=== PATIENT | male | born 1930 | race Caucasian/White ===

== ENCOUNTER 2017-04-14 08:14 | Inpatient (IN) | payer OTHER ==
--- NOTE | ~2017-04-14 | CR72 ---
[facility]. [facility] A Service of [facility] RADIOLOGY TEXT RESULTS PATIENT: DAYTON ORTEZ LOCATION: A : [birth year] UNIT #: [id number] AGE: [address]: Chandan Bishop MD SEX: M ORDER DR: [id number] [facility] [address]. [place], [place] [address] [id number] I MR#: [id number] Acc #: [id number] NAME: DAYTON ORTEZ : 1930 SEX: M STUDY DATE/TIME: 04/14/2017 10:36 UNIT: [facility] ROOM: 216 STUDY DESCRIPTION: CR Chest Single View Portable Attending Physician: Chas Leo M.D. Ordering Physician: Stefan Mendoza M.D. Primary Care Physician: Eric Stallings M.D. MEDICAL IMAGING REPORT This report is preliminary unless electronic signature is present EXAM AP chest radiograph. HISTORY Pneumothorax. Followup. FINDINGS An AP view is obtained, re-demonstrating an approximate 67% right-sided pneumothorax. There are postop changes of prior bypass. The patient has atelectasis and pleural fluid at the left base. CONCLUSION Right-sided pneumothorax. Overall, not changed significantly from the earlier film. Dictated by... Stefan Mendoza M.D. THIS IS AN ELECTRONICALLY VERIFIED REPORT Stefan Mendoza M.D. at 04/16/2017 9:17 AM Shaw TD: 04/14/2017 13:55 JOB #: [id number] MEDICAL IMAGING REPORT Page 1 of 1 COPY
--- NOTE | ~2017-04-14 | CR72 ---
[facility] A Service of [facility] & [facility] RADIOLOGY TEXT RESULTS PATIENT: DAYTON ORTEZ LOCATION: A : [birth year] UNIT #: [id number] AGE: [address]: Chandan Bishop MD SEX: M ORDER DR: [id number] [facility] [address] [place], [place] [address] [id number] I MR#: [id number] Acc #: [id number] NAME: DAYTON ORTEZ : 1930 SEX: M STUDY DATE/TIME: 04/15/2017 9:56 UNIT: [facility] ROOM: 216 STUDY DESCRIPTION: CR Chest Single View Portable Attending Physician: Chas Leo M.D. Ordering Physician: Lupe Bassett M.D. Primary Care Physician: Eric Stallings M.D. MEDICAL IMAGING REPORT This report is preliminary unless electronic signature is present EXAM AP chest radiograph HISTORY Follow up chest tube to water seal. FINDINGS An AP view is obtained. Continues to be mild edema. There are postop changes of bypass. Small bore drain remains in place in the right pleural space. Small right-sided pneumothorax persists and has not changed significantly. CONCLUSION No significant interim change. Tiny persistent right-sided pneumothorax. Continued evidence of bilateral pleural fluid and pulmonary edema. Dictated by... Stefan Mendoza M.D. THIS IS AN ELECTRONICALLY VERIFIED REPORT Stefan Mendoza M.D. at 04/16/2017 9:17 AM RAMONA/lashawn TD: 04/15/2017 15:14 JOB #: [id number] MEDICAL IMAGING REPORT Page 1 of 1 COPY
--- NOTE | ~2017-04-14 | CR72 ---
[facility] A Service of [facility] & [facility] RADIOLOGY TEXT RESULTS PATIENT: DAYTON ORTEZ LOCATION: A : [birth year] UNIT #: [id number] AGE: [address]: Chas Leo MD SEX: M ORDER DR: [id number] [facility] [address] [place], [place] [address] [id number] I MR#: [id number] Acc #: [id number] NAME: DAYTON ORTEZ : 1930 SEX: M STUDY DATE/TIME: 04/15/2017 5:15 UNIT: [facility] ROOM: [facility] STUDY DESCRIPTION: CR Chest Single View Portable Attending Physician: Chas Leo M.D. Ordering Physician: Chas Leo M.D. Primary Care Physician: Eric Stallings M.D. MEDICAL IMAGING REPORT This report is preliminary unless electronic signature is present EXAM Portable chest INDICATION Follow up right chest tube. FINDINGS This portable view of the chest shows a small caliber right chest tube present. I believe there is still a hydropneumothorax in the right base which is stable. The left lung does not have a pneumothorax. There are faint left perihilar infiltrates and there is left lower lobe atelectasis. There has been no change. Dictated by... Andre Baltazar M.D. THIS IS AN ELECTRONICALLY VERIFIED REPORT Andre Baltazar M.D. at 04/15/2017 1:31 PM SHAQUILLE/lashawn TD: 04/15/2017 11:28 JOB #: [id number] MEDICAL IMAGING REPORT Page 1 of 1 COPY
--- NOTE | ~2017-04-14 | DS ---
Unit #: [id number] #: [id number] Patient: DAYTON ORTEZ [id number] [address] [address] [id number] I MR#: [id number] NAME: DAYTON ORTEZ ROOM: 216 Age: 87 Sex: M Admission Date: 04/14/2017 : 1930 Discharge Date: 04/16/2017 Attending Physician: Chandan Bishpo M.D. Primary Care Physician: Eric Stallings M.D. DISCHARGE SUMMARY DIAGNOSES ON ADMISSION 1. Shortness of air. 2. Right pleural effusion. 3. Right pneumothorax. DIAGNOSES ON DISCHARGE 1. Right pneumothorax. 2. Right pleural effusion, status post thoracentesis. 3. Coronary artery disease, status post coronary artery bypass graft. 4. Congestive heart failure. 5. Hyperlipidemia. 6. Vitamin D deficiency. CONSULTATION Dr. Finney and group - CV Surgery. LABS AND PROCEDURES DONE The patient's creatinine is 0.9, sodium 134, potassium is 4.1. WBC was 8.5, hemoglobin 12.4, platelet count was 156. The patient had an outpatient thoracentesis done with removal of 1.5 liters of fluid. Chest x-ray revealed right sided pneumothorax. ASSESSMENT AND PLAN 87-year-old male who had outpatient thoracentesis done and had hemothorax, was admitted in the hospital. Interventional radiology has replaced her chest tube. Yesterday, they advised to remove the chest tube and repeat chest x-ray was done. I do not have the results but patient is feeling much better and wants to go home. He is accompanied by two daughters who stated that they will follow up on Monday with [facility] as scheduled. Therefore, I will discharge patient home at the family's request. RECOMMENDATIONS ON DISCHARGE 1. Condition is stable. 2. Activity is as tolerated. MEDICATIONS 1. Lopressor 25 mg p.o. b.i.d. 2. Lipitor 40 mg p.o. q. h.s. 3. Enteric coated aspirin 81 mg p.o. daily. Unit #: [id number] #: [id number] Patient: DAYTON ORTEZ 4. Protonix 40 mg p.o. daily. 5. Nitroglycerin 0.4 mg p.o. sublingual p.r.n. FAMILY HISTORY The patient is advised to follow up with primary care physician as scheduled on Monday. The plan was discussed in detail with the patient and daughters and they showed complete understanding. They will call family care physician or go to ER if patient's condition changes. Dictated by... Satya Galindo TD: 04/16/2017 12:24 JOB #: [id number] DISCHARGE SUMMARY Page 1 of 1 X Chandan Bishop MD X DISCHARGE SUMMARY
--- NOTE | ~2017-04-14 | CR72 ---
[facility] A Service of [facility] & [facility] RADIOLOGY TEXT RESULTS PATIENT: DAYTON ORTEZ LOCATION: A : [birth year] UNIT #: [id number] AGE: [address]: Chandan Bishop MD SEX: M ORDER DR: [id number] [facility] [address]. [place], [place] [address] [id number] I MR#: [id number] Acc #: [id number] NAME: DAYTON ORTEZ : 1930 SEX: M STUDY DATE/TIME: 04/15/2017 15:47 UNIT: [facility] ROOM: 216 STUDY DESCRIPTION: CR Chest Single View Portable Attending Physician: Chandan Bishop M.D. Ordering Physician: Stefan Mendoza M.D. Primary Care Physician: Eric Stallings M.D. MEDICAL IMAGING REPORT This report is preliminary unless electronic signature is present EXAM AP chest radiograph HISTORY Chest tube removal. FINDINGS An AP view of the chest is obtained. Right-sided pleural drain has been removed. Pneumothorax on the right is small and stable. Continues to be bilateral pleural effusions and there continues to be evidence of pulmonary edema. CONCLUSION 1. Interim right pleural drain removal, no change in the pneumothorax. 2. Findings consistent with congestive heart failure. Dictated by... Stefan Mendoza M.D. THIS IS AN ELECTRONICALLY VERIFIED REPORT Stefan Mendoza M.D. at 04/20/2017 7:15 AM RAMONA/mariano TD: 04/16/2017 16:21 JOB #: [id number] MEDICAL IMAGING REPORT Page 1 of 1 COPY
--- NOTE | ~2017-04-14 | CR71 ---
[facility] A Service of [facility] RADIOLOGY TEXT RESULTS PATIENT: DAYTON ORTEZ LOCATION: [facility] : [birth year] UNIT #: [id number] AGE: [address]: Chandan Bishop MD SEX: M ORDER DR: [id number] [facility] [address] [facility]. [place], [place] [address] [id number] I MR#: [id number] Acc #: [id number] NAME: DAYTON ORTEZ : 1930 SEX: M STUDY DATE/TIME: 04/14/2017 9:45 UNIT: [facility] ROOM: [facility] STUDY DESCRIPTION: CR Chest Single View Attending Physician: Chas Leo M.D. Ordering Physician: Stefan Mendoza M.D. Primary Care Physician: Eric Stallings M.D. MEDICAL IMAGING REPORT This report is preliminary unless electronic signature is present EXAM AP chest radiograph. HISTORY Status post right thoracentesis. TECHNIQUE An AP view was obtained. FINDINGS The patient has had a right thoracentesis. There is about 60% to 70% right-sided pneumothorax with atelectasis of the right lung. The patient does have atelectasis at the left base and left-sided pleural fluid and interim postop changes of bypass surgery. CONCLUSION 1. Interim right thoracentesis with a right-sided pneumothorax ex vacuo with about 60% to 70%. Followup chest radiograph will be obtained in 1 hour. 2. Interim bypass surgery. Dictated by... Stefan Mendoza M.D. THIS IS AN ELECTRONICALLY VERIFIED REPORT Stefan Mendoza M.D. at 04/16/2017 9:17 AM RAMONA/lydia TD: 04/14/2017 13:44 JOB #: [id number] [facility] A Service of [facility] & [facility] RADIOLOGY TEXT RESULTS PATIENT: DAYTON ORTEZ LOCATION: [facility] : [birth year] UNIT #: [id number] AGE: [address]: Chandan Bishop MD SEX: M ORDER DR: MEDICAL IMAGING REPORT Page 1 of 1 COPY
--- NOTE | ~2017-04-14 | XA203 ---
[facility] A Service of [facility] RADIOLOGY TEXT RESULTS PATIENT: DAYTON ORTEZ LOCATION: A : [birth year] UNIT #: [id number] AGE: [address]: Chandan Bishop MD SEX: M ORDER DR: [id number] [place] [id number] [facility]. [place], [place] [address] [id number] I MR#: [id number] Acc #: [id number] NAME: DAYTON ORTEZ : 1930 SEX: M STUDY DATE/TIME: 04/14/2017 9:16 UNIT: C2 ROOM: 216 STUDY DESCRIPTION: XA Thoracentesis Attending Physician: Chas Leo M.D. Primary Care Physician: Eric Stallings M.D. MEDICAL IMAGING REPORT This report is preliminary unless electronic signature is present EXAM Right thoracentesis HISTORY Shortness of breath since bypass surgery in September 2016. FINDINGS Ultrasound examination was performed of the right and left chest showing large pleural effusions bilaterally, greater on the right. An appropriate site was chosen. Skin was prepped posteriorly with Chlorhexidine solution and sterilely draped. Gloves were utilized during the procedure. Under local anesthesia, a 5-Thai catheter was inserted. A total of 1.95 L of fluid was removed. This appeared to be serous and non turbid. It was sent for appropriate laboratory analysis. Postprocedure, the patient has air return through the tube suggesting a pneumothorax. Postprocedure chest radiograph shows an approximately 60% to 70% pneumothorax ex vacuo. The patient is asymptomatic. Patient was monitored in the department for 2 hours. A small-bore chest tube was subsequently inserted and the patient will be monitored for overnight observation. CONCLUSION 1. Technically successful right-sided thoracentesis with removal of 1.95 L of serous fluid. This was sent for appropriate analysis. 2. Pneumothorax ex vacuo. Given the size of the pneumothorax, chest tube placement was performed and the patient admitted overnight for observation. Dictated by... Stefan Mendoza M.D. [facility] A Service of [facility] & [facility] RADIOLOGY TEXT RESULTS PATIENT: DAYTON ORTEZ LOCATION: [facility] 216-01 : [birth year] UNIT #: [id number] AGE: [address]: Chandan Bishop MD SEX: M ORDER DR: THIS IS AN ELECTRONICALLY VERIFIED REPORT Stefan Mendoza M.D. at 04/16/2017 9:17 AM RAMONA/lashawn TD: 04/14/2017 13:55 JOB #: [id number] MEDICAL IMAGING REPORT Page 1 of 1 COPY
--- NOTE | ~2017-04-14 | XA96 ---
[facility] A Service of [facility] & [facility] RADIOLOGY TEXT RESULTS PATIENT: DAYTON ORTEZ LOCATION: A : [birth year] UNIT #: [id number] AGE: [address]: Chandan Bishop MD SEX: M ORDER DR: [id number] [facility] [address]. [place], [place] [address] [id number] I MR#: [id number] Acc #: [id number] NAME: DAYTON ORTEZ : 1930 SEX: M STUDY DATE/TIME: 04/14/2017 11:22 UNIT: [facility] ROOM: 216 STUDY DESCRIPTION: XA Chest Tube for Pneumo or pl Attending Physician: Chas Leo M.D. Ordering Physician: Stefan Mendoza M.D. Primary Care Physician: Eric Stallings M.D. MEDICAL IMAGING REPORT This report is preliminary unless electronic signature is present EXAM Chest tube placement under fluoroscopy. HISTORY Right pneumothorax. CLINICAL SUMMARY Mr. Ortez is an 87-year-old male who underwent a bypass procedure at [facility] in the fall of 2015. He has had intermittent shortness of breath since and was referred for a right-sided thoracentesis. This was performed and the patient has a approximately 60% to 70% pneumothorax on the right. The patient is asymptomatic. Given the size of the pneumothorax and his advanced age, it was selective to place is small-bore chest tube and admit patient overnight for observation. PROCEDURE Skin was prepped and draped over the right anterior chest wall and anesthetized with 1% Xylocaine. Sterile drapes were utilized as well as a sterile gown, masks, hats, and gloves and shoe covers. Utilizing maximal sterile barrier technique, a Yueh needle was inserted under local anesthesia through the anterior chest wall over top of the right fourth rib anteriorly. An 0.035 wire was inserted and a 8-Citizen Of [place] pigtail drain placed. This was placed to low continuous suction through Pleur-evac. The procedure was very well tolerated. A single spot radiograph was obtained. Total exposure is estimated 2 mGy air kerma standard. Fluoroscopy time 1.9 minutes. CONCLUSION Successful placement of a small-bore right pleural drain to Pleur-evac drainage for a right-sided pneumothorax. [facility]. [facility] A Service of [facility] RADIOLOGY TEXT RESULTS PATIENT: DAYTON ORTEZ LOCATION: A 216-01 : [birth year] UNIT #: [id number] AGE: [address]: Chandan Bishop MD SEX: M ORDER DR: Dictated by... Stefan Mendoza M.D. THIS IS AN ELECTRONICALLY VERIFIED REPORT Stefan Mendoza M.D. at 04/16/2017 9:17 AM RAMONA/lydia TD: 04/14/2017 13:47 JOB #: [id number] MEDICAL IMAGING REPORT Page 1 of 1 COPY
--- NOTE | ~2017-04-14 | CR71 ---
[facility] A Service of [facility] RADIOLOGY TEXT RESULTS PATIENT: DAYTON ORTEZ LOCATION: A 216- : [birth year] UNIT #: [id number] AGE: [address]: Chandan Bishop MD SEX: M ORDER DR: [id number] [facility] [address] [facility]. [place], [place] [address] [id number] I MR#: [id number] Acc #: [id number] NAME: DAYTON ORTEZ : 1930 SEX: M STUDY DATE/TIME: 04/14/2017 12:01 UNIT: [facility] ROOM: 216 STUDY DESCRIPTION: CR Chest Single View Attending Physician: Chas Leo M.D. Ordering Physician: Stefan Mendoza M.D. Primary Care Physician: Eric Stallings M.D. MEDICAL IMAGING REPORT This report is preliminary unless electronic signature is present EXAM AP chest radiograph HISTORY Status post left chest tube placement. FINDINGS AP view is obtained. There has been interim insertion of a right-sided pleural drain with marked decrease in the right-sided pneumothorax with incomplete reexpansion of the right lung. There is a small basilar component remaining. CONCLUSION Decrease in the right pneumothorax. Interim insertion of a small bore right pleural drain. Dictated by... Stefan Mendoza M.D. THIS IS AN ELECTRONICALLY VERIFIED REPORT Stefan Mendoza M.D. at 04/16/2017 9:17 AM RAMONA/lashawn TD: 04/14/2017 13:49 JOB #: [id number] MEDICAL IMAGING REPORT Page 1 of 1 COPY
--- NOTE | ~2017-04-14 | HP ---
Unit #: [id number] #: [id number] Patient: DAYTON ORTEZ [id number] [address] [address] [id number] I MR#: [id number] NAME: DAYTON ORTEZ ROOM: 216 Age: 87 Sex: M Admission Date: 04/14/2017 : 1930 Attending Physician: Chas Leo M.D. Primary Care Physician: Eric Stallings M.D. HISTORY AND PHYSICAL CHIEF COMPLAINT Dyspnea. HISTORY OF PRESENT ILLNESS The patient is an 87-year-old male with past medical history of coronary artery disease, CHF, hyperlipidemia and vitamin D deficiency who presented to interventional radiology for evaluation of the above. The patient states that he has about a 1-month history of increasing shortness of breath and nonproductive cough. He denies any chest pain. No fever. Chest x-ray was done on April 10, 2017 and showed a large right pleural effusion. He presented to interventional radiology today for thoracentesis. He subsequently was noted to have a pneumothorax. A chest tube was placed. He is being admitted for observation. Of note, 1.8 liters of fluid was removed from the right chest cavity. PAST MEDICAL HISTORY 1. Admission to [facility] in September of 2016 for coronary artery bypass grafting (no records). 2. Congestive heart failure with unknown ejection fraction. 3. Coronary artery disease status post coronary artery bypass grafting. 4. Hyperlipidemia. 5. Vitamin D deficiency. PAST SURGICAL HISTORY 1. Coronary artery bypass grafting. 2. Tonsillectomy. SOCIAL HISTORY The patient lives with his . There is no tobacco or alcohol use. He walks with a cane. His code status is a [id number]. FAMILY HISTORY Noncontributory secondary to age. PHYSICAL EXAMINATION VITAL SIGNS: Currently pending. GENERAL: The patient is a very pleasant male who is awake and alert in no acute distress. HEENT: The head is atraumatic. Mucous membranes are moist. NECK: Supple. Trachea is midline. CARDIOVASCULAR: Regular rate and rhythm. He does have a 2 to 3/6 systolic ejection murmur. RESPIRATORY: Lungs are clear to auscultation bilaterally with no Unit #: [id number] #: [id number] Patient: DAYTON ORTEZ increased work of breathing. He does have a chest tube in the right chest. ABDOMEN: Soft, nontender with bowel sounds present in all 4 quadrants. EXTREMITIES: Extremities are nontender with no pedal edema. NEUROLOGIC: The patient is awake and alert. He follows commands. PSYCHIATRIC: Mood and affect are normal. The patient is cooperative. SKIN: Skin of examined areas is warm and dry. DIAGNOSTIC TESTS IMAGING: Chest x-ray shows right-sided pneumothorax. A repeat chest x-ray following chest tube placement is currently pending. LABORATORY: INR is 1.1. ASSESSMENT 1. The patient is an 87-year-old male with dyspnea secondary to number 2. 2. Right pleural effusion status post thoracentesis complicated by number 3. 3. Pneumothorax, right, status post chest tube placement. 4. History of coronary artery disease status post coronary artery bypass grafting. 5. Congestive heart failure with unknown ejection fraction. 6. Hyperlipidemia. 7. Vitamin D deficiency. PLAN 1. Admit for observation to med/surg. 2. Two-gram sodium, 1,800 mL fluid restricted, heart healthy diet. 3. Strict I's and O's. 4. Daily weights. 5. Consult interventional radiology for chest tube management. 6. Follow up repeat chest x-ray and will repeat chest x-ray in the morning. 7. Check labs. 8. Get records from [facility]. 9. Tylenol p.r.n. 10. SCDs for DVT prophylaxis. 11. Regarding codes status, the patient is a [id number]. Dictated by Satya Jimenez/korin TD: 04/14/2017 13:21 JOB #: [id number] Unit #: [id number] #: [id number] Patient: DAYTON ORTEZ HISTORY AND PHYSICAL Page 1 of 1 X Fabiana Osborne MD HISTORY AND PHYSICAL
--- NOTE | ~2017-04-14 | CR72 ---
[facility] A Service of [facility] & [facility] RADIOLOGY TEXT RESULTS PATIENT: DAYTON ORTEZ LOCATION: C2A : [birth year] UNIT #: [id number] AGE: [address]: Chandan Bishop MD SEX: M ORDER DR: [id number] [facility] [address] [place], [place] [address] [id number] I MR#: [id number] Acc #: [id number] NAME: DAYTON ORTEZ : 1930 SEX: M STUDY DATE/TIME: 04/15/2017 11:11 UNIT: [facility] ROOM: 216 STUDY DESCRIPTION: CR Chest Single View Portable Attending Physician: Chandan Bishop M.D. Ordering Physician: Lupe Bassett M.D. Primary Care Physician: Eric Stallings M.D. MEDICAL IMAGING REPORT This report is preliminary unless electronic signature is present EXAM AP portable chest 04/15/2017 at 11:11 HISTORY Pleural effusion today with chest tube placement. Shortness of breath. Cough. Pneumonia. COMPARISON AP portable chest 04/15/2017 at 09:56. NOTE The study is from 04/15/2017 11:11. For reasons unknown to myself, was placed online for interpretation by the technologist today, 04/27/2017 at 10:02. Of note, an additional chest radiograph was performed after the currently interpreted study, and that follow-up chest radiograph was timed and dated 04/15/2017 at 15:47. FINDINGS Right chest wall pigtail pleural drain appears stable in position. Small right apical pneumothorax is seen with the pleural line projecting 1.4 cm below the right posterior second rib shadow. Small lateral and basilar components of the pneumothorax persists, and likewise appear unchanged. Emphysematous changes are present. Stable small bilateral pleural effusions and bibasilar atelectasis or infiltrates. Interstitial thickening is present within the lungs, greatest in the right suprahilar region left mid-lung, unchanged from prior, thought to most likely to represent chronic scarring. Stable mild cardiac enlargement with signs of median sternotomy and CABG. IMPRESSION 1. The right side pneumothorax appears stable in comparison to the [facility] A Service of [facility] & [facility] RADIOLOGY TEXT RESULTS PATIENT: DAYTON ORTEZ LOCATION: [facility] 216-01 : [birth year] UNIT #: [id number] AGE: [address]: Chandan Bishop MD SEX: M ORDER DR: 04/15/2017 study at 05:15. The right pigtail pleural drain is also unchanged. 2. Bibasilar infiltrates with small layering bilateral pleural effusions, chronic bilateral lung scarring and emphysematous change, unchanged. 3. Stable cardiomegaly with CABG. Dictated by... Lupe Velez M.D. THIS IS AN ELECTRONICALLY VERIFIED REPORT Lupe Velez M.D. at 04/28/2017 8:32 AM ALANNA/duy TD: 04/27/2017 15:31 JOB #: [id number] MEDICAL IMAGING REPORT Page 1 of 1 COPY
[~2017-04-14 08:14] MED LIST: ASPIRIN PO
[2017-04-14 08:52] LABS: HEMATOCRIT 43.7 % (38.0-50.0); HEMOGLOBIN 14.2 gm/dL (13.0-16.0); MEAN CELL VOLUME 87.7 FL (83-96); MEAN CORPUSCULAR HEMOGLOBIN 28.5 PG (28-34); MEAN CORPUSCULAR HGB CONC 32.5 g/dL (30-36); MEAN PLATELET VOLUME 9.4 FL (6.5-11.5); RED BLOOD COUNT 4.98 X10e (3.90-5.60); RED CELL DISTRIBUTION WIDTH 15.7 % (11.0-15.5); WHITE BLOOD COUNT 11.1 X10e3 (4.0-10.5)
[2017-04-14 09:12] LABS: INR 1.1; PARTIAL THROMBOPLASTIN TIME 31.6 SECONDS (23.5-31.3); PROTHROMBIN TIME (PATIENT) 11.3 SECONDS (9.6-11.5)
[2017-04-14 11:42] LABS: BODY FLUID APPEARANCE HAZY; BODY FLUID SOURCE THORACENTESIS
[2017-04-14 11:43] LABS: BODY FLUID SPECIFIC GRAVITY 1.025
[2017-04-14 11:47] LABS: BF TOTAL NUCLEATED CELL COUNT 460 CMM (0-100); BODY FLUID RBC <10000 CMM
[2017-04-14 12:29] LABS: PROTEIN, BODY FLUID 3.9 gm/dL
[2017-04-14] MEDS ORDERED: METOPROLOL TAR25 MG PO (13:09)
[2017-04-14] MEDS ORDERED: LIPITOR40 MG PO (13:09)
[2017-04-14] MEDS ORDERED: PROTONIX PO (13:09)
[2017-04-14] MEDS ORDERED: NITROGLYGERIN0.4 MG SL (13:10)
[2017-04-14 14:13] LABS: HEMATOCRIT 40.5 % (38.0-50.0); HEMOGLOBIN 13.1 gm/dL (13.0-16.0); MEAN CELL VOLUME 87.8 FL (83-96); MEAN CORPUSCULAR HEMOGLOBIN 28.5 PG (28-34); MEAN CORPUSCULAR HGB CONC 32.5 g/dL (30-36); MEAN PLATELET VOLUME 9.6 FL (6.5-11.5); RED BLOOD COUNT 4.61 X10e (3.90-5.60); RED CELL DISTRIBUTION WIDTH 15.5 % (11.0-15.5)
[2017-04-14 14:18] LABS: BUN/CREATININE RATIO 11.11; CALCIUM SERUM 8.2 mg/dL (8.4-10.2); CREATININE SERUM 0.9 mg/dL (0.6-1.4); GLOM FILT RATE Estimated 75.5 mL/min (>60); POTASSIUM 3.9 mmol/L (3.5-5.1)
[2017-04-15 06:12] LABS: HEMATOCRIT 38.2 % (38.0-50.0); HEMOGLOBIN 12.4 gm/dL (13.0-16.0); MEAN CELL VOLUME 87.4 FL (83-96); MEAN CORPUSCULAR HEMOGLOBIN 28.4 PG (28-34); MEAN CORPUSCULAR HGB CONC 32.5 g/dL (30-36); MEAN PLATELET VOLUME 9.6 FL (6.5-11.5); RED BLOOD COUNT 4.37 X10e (3.90-5.60); RED CELL DISTRIBUTION WIDTH 15.2 % (11.0-15.5); WHITE BLOOD COUNT 8.5 X10e3 (4.0-10.5)
[2017-04-15 07:03] LABS: BUN/CREATININE RATIO 12.22; CALCIUM SERUM 8.3 mg/dL (8.4-10.2); CREATININE SERUM 0.9 mg/dL (0.6-1.4); GLOM FILT RATE Estimated 75.5 mL/min (>60); POTASSIUM 4.1 mmol/L (3.5-5.1)
== END 2017-04-16 12:24 | disposition home or self-care (01) | DRG 167 ==
LOC: CIVR 08:14 → C2A 12:00 → CIVR 12:59 → C2A 04-16 05:40
PROVIDERS: Internal Medicine
PROC: 0W994ZZ Drainage of Right Pleural Cavity, Percutaneous Endoscopic Approach (ICD-10-PCS; principal; 2017-04-14)
PROC: 0W9930Z Drainage of Right Pleural Cavity with Drainage Device, Percutaneous Approach (ICD-10-PCS; 2017-04-14)
DX: J93.9 Pneumothorax, unspecified (principal); J91.8 Pleural effusion in other conditions classified elsewhere; Z95.1 Presence of aortocoronary bypass graft; I50.9 Heart failure, unspecified; I25.10 Atherosclerotic heart disease of native coronary artery without angina pectoris; E78.5 Hyperlipidemia, unspecified; E55.9 Vitamin D deficiency, unspecified; Z66 Do not resuscitate
CPT/HCPCS: 36415; 71010; 80048; 82945; 83615; 83986; 84157; 84315; 85027; 85610; 85730; 87070; 87205; 88108; 88305; 89051; 94760; J1940